=== PATIENT | female | born 1965 | race Hispanic/Latino ===

== ENCOUNTER 2019-07-07 09:28 | Inpatient (IN) | payer BC ==
[~2019-07-07] VITALS: Ht 152.4 cm; Wt 68.0 kg
[2019-07-07 09:54] LABS: BASOPHILS % (AUTO) 0.4 % (0.0-5.0); EOSINOPHILS % (AUTO) 0.8 % (0.0-8.0); HEMATOCRIT 45.1 % (36-48); LYMPHOCYTES % (AUTO) 13.6 % (21.0-51.0); MEAN CORPUSCULAR HEMOGLOBIN 30.4 pg (27.0-33.0); MEAN CORPUSCULAR HGB CONC 33.9 g/dL (32.0-36.0); MEAN CORPUSCULAR VOLUME 89.7 fL (79-99); MONOCYTES % (AUTO) 11.4 % (3.0-13.0); NEUTROPHILS % (AUTO) 73.3 % (40.0-77.0); PLATELET COUNT (AUTO) 240 K/uL (130-400); RED BLOOD CELL COUNT(AUTO) 5.03 MIL/uL (4.00-5.50); RED CELL DISTRIBUTION WIDTH 12.6 % (11.0-15.5); WHITE BLOOD COUNT (AUTO) 11.2 K/uL (4.8-10.8)
[2019-07-07] MEDS ORDERED: CEFTRIAXONE SODIUM 2 GM VIAL ONE (10:06)
[2019-07-07] MEDS ORDERED: SODIUM CHLORIDE 0.9% 100 ML IV ONE (10:07)
[2019-07-07 10:12] LABS: CREATININE 1.1 mg/dL (0.5-1.5); POTASSIUM 3.5 mmol/L (3.5-5.1)
[2019-07-07 10:15] LABS: INR 0.87 (0.85-1.15); PARTIAL THROMBOPLASTIN TIME 30.6 SEC (26.3-35.5); PROTHROMBIN TIME 9.4 SEC (9.6-11.6)
[2019-07-07 10:17] LABS: ALBUMIN 3.4 g/dL (3.5-5.0); BILIRUBIN,TOTAL 0.6 mg/dL (0.2-1.0); TOTAL PROTEIN, SERUM 8.5 g/dL (6.0-8.3)
[2019-07-07] MEDS ORDERED: SODIUM CHLORIDE 0.9% 1000ML 1,000 ML IV ONE (11:31)
[2019-07-07] MEDS ORDERED: MORPHINE SULFATE 4 MG/1ML SYG ONE (11:32)
[2019-07-07] MEDS ORDERED: GLUCAGON 1MG KIT 1 MG ML IM PRN (12:15)
[2019-07-07] MEDS ORDERED: DEXTROSE 50%-WATER 50 ML DISP.SYRIN IV PRN (12:15)
[2019-07-07] MEDS ORDERED: LIDOCAINE HCL-MPF 1% 2ML VIAL IV PRN (12:15)
[2019-07-07] MEDS ORDERED: ONDANSETRON HCL 4 MG/2 ML VIAL IVP PRN ×2 (12:15→16:30)
[2019-07-07] MEDS ORDERED: POTASSIUM CHLORIDE 10% ELIXIR 20 MEQ/15 ML UDCUP PO PRN (12:15)
[2019-07-07] MEDS ORDERED: HYDRALAZINE HCL 20 MG/ML VIAL IV PRN ×2 (12:15→16:30)
[2019-07-07] MEDS ORDERED: LABETALOL 20 MG/4 ML DISP.SYRIN IV PRN (12:15)
[2019-07-07] MEDS ORDERED: VANCOMYCIN PROTOCOL PER PHARMACY IV SCH (12:15)
[2019-07-07] MEDS ORDERED: POTASSIUM CHLORIDE 20MEQ/100ML 100 ML IV PRN (12:15)
[2019-07-07] MEDS ORDERED: MAGNESIUM 2GM PREMIX 50ML 50 ML IV PRN ×2 (12:15→16:30)
[2019-07-07] MEDS ORDERED: HYDROMORPHONE HCL 0.5 MG/0.5 ML ML IVP PRN (12:15)
[2019-07-07] MEDS ORDERED: VANCOMYCIN 1GM+NS 250ML 250 ML IV ONE (13:27)
[2019-07-07 13:50] VITALS: BP 138/94
--- NOTE | 2019-07-07 14:00 | NUR ---
REPORT RECEIVED FROM TIFFANIE MARKS (ED). PATIENT ADMITTED FOR LEFT LEG CELLULITIS UNDER DR. LEUNG. LEFT LEG SWELLING WITH REDNESS AND PURPLE DISCOLORATION NOTED. SKIN INTACT. PATIENT STABLE AT THIS TIME.
[2019-07-07 14:15] LABS: HEMATOCRIT 40.3 % (36-48); MEAN CORPUSCULAR HEMOGLOBIN 30.5 pg (27.0-33.0); MEAN CORPUSCULAR HGB CONC 33.5 g/dL (32.0-36.0); MEAN CORPUSCULAR VOLUME 91.2 fL (79-99); RED BLOOD CELL COUNT(AUTO) 4.42 MIL/uL (4.00-5.50); RED CELL DISTRIBUTION WIDTH 12.7 % (11.0-15.5)
[2019-07-07] MEDS ORDERED: PHARMACY COMMUNICATION MISC SCH (14:30)
[2019-07-07 14:31] LABS: CREATININE 0.7 mg/dL (0.5-1.5); POTASSIUM 3.7 mmol/L (3.5-5.1)
[2019-07-07 14:34] LABS: MAGNESIUM 1.9 mg/dL (1.80-2.40); PHOSPHORUS 3.8 mg/dL (2.5-4.9)
[2019-07-07 15:30] VITALS: BP 140/80
[2019-07-07] MEDS: INSULIN HUMULIN R 100 UNIT/ML 3ML SQ SCH ×2 (16:30→21:00)
[2019-07-07] MEDS ORDERED: ACETAMINOPHEN 325 MG TAB PO PRN (16:30)
[2019-07-07] MEDS ORDERED: IBUPROFEN 800 MG TAB PO PRN (16:30)
[2019-07-07] MEDS ORDERED: LACTULOSE 20 GM/30 ML UDCUP PO PRN (16:30)
[2019-07-07 20:00] VITALS: BP 125/81
[2019-07-07] MEDS: ACETAMINOPHEN 325 MG TAB PO PRN (20:23)
[2019-07-07] MEDS: HEPARIN SODIUM 5000UNIT/ML 1ML VIAL SQ SCH (20:30)
[2019-07-07] MEDS ORDERED: VANCOMYCIN 1GM+NS 250ML 250 ML IV SCH (21:00)
[2019-07-08] VITALS: BP 115/71
[2019-07-08] MEDS: VANCOMYCIN 1GM+NS 250ML 250 ML IV SCH ×3 (02:45→21:47)
[2019-07-08] MEDS: SODIUM CHLORIDE 0.9% 1000ML 1,000 ML IV SCH ×3 (02:45→22:30)
[2019-07-08 04:00] VITALS: BP 106/78
[2019-07-08] MEDS: ACETAMINOPHEN 325 MG TAB PO PRN (04:06)
[2019-07-08 05:57] LABS: HEMATOCRIT 36.3 % (36-48); MEAN CORPUSCULAR HGB CONC 34.2 g/dL (32.0-36.0); MEAN CORPUSCULAR VOLUME 90.8 fL (79-99); RED CELL DISTRIBUTION WIDTH 12.5 % (11.0-15.5); WHITE BLOOD COUNT (AUTO) 9.9 K/uL (4.8-10.8)
[2019-07-08 06:11] LABS: CREATININE 0.8 mg/dL (0.5-1.5); MAGNESIUM 1.9 mg/dL (1.80-2.40); PHOSPHORUS 3.4 mg/dL (2.5-4.9)
[2019-07-08] MEDS: INSULIN HUMULIN R 100 UNIT/ML 3ML SQ SCH ×4 (06:39→21:00)
[2019-07-08 07:31] VITALS: BP 120/77
[2019-07-08] MEDS: LEVOFLOXACIN 750 MG/D5W 150 ML 150 ML IV SCH (08:48)
[2019-07-08] MEDS: POTASSIUM CHLORIDE 20 MEQ ERTAB PO PRN ×3 (08:49→17:14)
[2019-07-08] MEDS: PANTOPRAZOLE SODIUM 40 MG TABLET.DR PO SCH (08:50)
[2019-07-08] MEDS: HEPARIN SODIUM 5000UNIT/ML 1ML VIAL SQ SCH ×2 (08:52→21:46)
[2019-07-08 11:04] VITALS: BP 125/74
[2019-07-08 15:38] VITALS: BP 141/91
[2019-07-08 20:27] VITALS: BP 126/81
[2019-07-09] VITALS (8 sets, daily range): BP systolic 105–150; BP diastolic 63–93
--- NOTE | 2019-07-09 06:10 | NUR ---
CALLED PHARMACY [facility] AWARE OF PT'S VANCO THROUGH AND FAXED /SEND LAB REPORT STATED WILL TELL PHARMACIST
[2019-07-09] MEDS: INSULIN HUMULIN R 100 UNIT/ML 3ML SQ SCH ×4 (06:12→21:00)
[2019-07-09] MEDS: LEVOFLOXACIN 750 MG/D5W 150 ML 150 ML IV SCH (07:48)
[2019-07-09] MEDS: PANTOPRAZOLE SODIUM 40 MG TABLET.DR PO SCH (07:48)
[2019-07-09] MEDS: HEPARIN SODIUM 5000UNIT/ML 1ML VIAL SQ SCH ×2 (07:54→21:53)
[2019-07-09] MEDS: SODIUM CHLORIDE 0.9% 1000ML 1,000 ML IV SCH (08:30)
[2019-07-09] MEDS: VANCOMYCIN 1GM+NS 250ML 250 ML IV SCH ×2 (09:00→21:52)
[2019-07-09] MEDS ORDERED: VANCOMYCIN 2 GM in SODIUM CHLORIDE 0.9% 500ML 500 ML IV SCH (09:30)
[2019-07-09] MEDS ORDERED: POTASSIUM CHLORIDE 20MEQ/100ML 100 ML IV PRN (15:45)
[2019-07-09] MEDS ORDERED: LIDOCAINE HCL-MPF 1% 2ML VIAL IJ PRN (15:45)
[2019-07-09] MEDS ORDERED: POTASSIUM CHLORIDE 10% ELIXIR 20 MEQ/15 ML UDCUP PO PRN (15:45)
[2019-07-09] MEDS ORDERED: POTASSIUM CHLORIDE 20 MEQ ERTAB PO PRN (15:45)
[2019-07-09] MEDS ORDERED: MAGNESIUM 2GM PREMIX 50ML 50 ML IV PRN (15:45)
[2019-07-09] MEDS ORDERED: FLUCONAZOLE 200 MG/NS 100 ML 100 ML IV SCH (16:00)
[2019-07-09] MEDS: TERBINAFINE HCL 15 GM TUBE TP SCH (22:03)
[2019-07-10 03:00] VITALS: BP 122/87
[2019-07-10 03:56] LABS: BASOPHILS % (AUTO) 0.6 % (0.0-5.0); EOSINOPHILS % (AUTO) 3.2 % (0.0-8.0); HEMATOCRIT 38.8 % (36-48); LYMPHOCYTES % (AUTO) 25.7 % (21.0-51.0); MEAN CORPUSCULAR HEMOGLOBIN 30.4 pg (27.0-33.0); MEAN CORPUSCULAR HGB CONC 33.5 g/dL (32.0-36.0); MEAN CORPUSCULAR VOLUME 90.7 fL (79-99); MONOCYTES % (AUTO) 10.5 % (3.0-13.0); NEUTROPHILS % (AUTO) 56.5 % (40.0-77.0); PLATELET COUNT (AUTO) 316 K/uL (130-400); RED BLOOD CELL COUNT(AUTO) 4.28 MIL/uL (4.00-5.50); RED CELL DISTRIBUTION WIDTH 12.3 % (11.0-15.5); WHITE BLOOD COUNT (AUTO) 10.4 K/uL (4.8-10.8)
[2019-07-10 04:20] LABS: ALBUMIN 2.8 g/dL (3.5-5.0); BILIRUBIN,TOTAL 0.4 mg/dL (0.2-1.0); CREATININE 0.8 mg/dL (0.5-1.5); CRP QUANTITATIVE 81.9 mg/L (0.00-9.0); POTASSIUM 3.6 mmol/L (3.5-5.1); TOTAL PROTEIN, SERUM 7.4 g/dL (6.0-8.3)
[2019-07-10 04:59] LABS: ERYTHROCYTE SEDIMENTATION RATE 65 MM/HR (0-30)
[2019-07-10] MEDS: VANCOMYCIN 1GM+NS 250ML 250 ML IV SCH (05:27)
[2019-07-10] MEDS: INSULIN HUMULIN R 100 UNIT/ML 3ML SQ SCH ×4 (05:27→21:00)
[2019-07-10 07:58] VITALS: BP 131/86
[2019-07-10] MEDS: LEVOFLOXACIN 750 MG/D5W 150 ML 150 ML IV SCH (10:17)
[2019-07-10] MEDS: PANTOPRAZOLE SODIUM 40 MG TABLET.DR PO SCH (10:30)
[2019-07-10] MEDS: TERBINAFINE HCL 15 GM TUBE TP SCH ×2 (11:02→21:32)
[2019-07-10] MEDS: HEPARIN SODIUM 5000UNIT/ML 1ML VIAL SQ SCH ×2 (11:02→21:39)
--- NOTE | 2019-07-10 11:44 | NUR ---
DCP CM met with pt discussed dc plans. Pt is independent prior to admission, lives at home with spouse. Denies any equipments/services. Feels safe to go back home, still works and drives, spouse able to assist with transportation and needs as necessary. DC plan to home once stable. CM to cont to follow up. Addendum: 07/10/19 at 1145 by ANUJ HENRY LVN CM Amended: Links added.
[2019-07-10 12:07] VITALS: BP 137/93
[2019-07-10 16:00] VITALS: BP 128/87
[2019-07-10] MEDS: CLINDAMYCIN 900 MG/D5% WATER 50 ML IV SCH ×2 (16:04→23:59)
[2019-07-10] MEDS: ACETAMINOPHEN 325 MG TAB PO PRN (16:11)
[2019-07-10 20:13] VITALS: BP 122/83
[2019-07-11 00:34] VITALS: BP 111/71
[2019-07-11 03:39] LABS: BASOPHILS % (AUTO) 0.8 % (0.0-5.0); EOSINOPHILS % (AUTO) 4.4 % (0.0-8.0); HEMATOCRIT 39.5 % (36-48); LYMPHOCYTES % (AUTO) 24.4 % (21.0-51.0); MEAN CORPUSCULAR HEMOGLOBIN 30.6 pg (27.0-33.0); MEAN CORPUSCULAR HGB CONC 33.7 g/dL (32.0-36.0); MEAN CORPUSCULAR VOLUME 90.8 fL (79-99); MONOCYTES % (AUTO) 9.2 % (3.0-13.0); NEUTROPHILS % (AUTO) 54.8 % (40.0-77.0); PLATELET COUNT (AUTO) 346 K/uL (130-400); RED BLOOD CELL COUNT(AUTO) 4.35 MIL/uL (4.00-5.50); RED CELL DISTRIBUTION WIDTH 12.2 % (11.0-15.5); WHITE BLOOD COUNT (AUTO) 8.8 K/uL (4.8-10.8)
[2019-07-11 04:09] LABS: ALBUMIN 2.8 g/dL (3.5-5.0); BILIRUBIN,TOTAL 0.3 mg/dL (0.2-1.0); CREATININE 0.9 mg/dL (0.5-1.5); CRP QUANTITATIVE 50.3 mg/L (0.00-9.0); MAGNESIUM 2.1 mg/dL (1.80-2.40); PHOSPHORUS 5.3 mg/dL (2.5-4.9); POTASSIUM 4.1 mmol/L (3.5-5.1); TOTAL PROTEIN, SERUM 7.2 g/dL (6.0-8.3)
[2019-07-11 04:44] LABS: ERYTHROCYTE SEDIMENTATION RATE 85 MM/HR (0-30)
[2019-07-11 04:46] VITALS: BP 128/87
[2019-07-11] MEDS: CLINDAMYCIN 900 MG/D5% WATER 50 ML IV SCH ×3 (06:02→21:14)
[2019-07-11] MEDS: INSULIN HUMULIN R 100 UNIT/ML 3ML SQ SCH ×4 (06:48→21:00)
--- NOTE | 2019-07-11 07:48 | NUR ---
PATIENT UPDATE Left leg less swollen, elevated over 1 pillow overnight. No complaints of pain, vital signs stable. Taken down in the MRI dept this am for the MRI of the left lower extremity this am.
[2019-07-11 08:00] VITALS: BP 147/83
[2019-07-11] MEDS: LEVOFLOXACIN 750 MG/D5W 150 ML 150 ML IV SCH (08:30)
[2019-07-11] MEDS: FLUCONAZOLE 100 MG TAB PO SCH (08:33)
[2019-07-11] MEDS: PANTOPRAZOLE SODIUM 40 MG TABLET.DR PO SCH (08:36)
[2019-07-11] MEDS: TERBINAFINE HCL 15 GM TUBE TP SCH ×2 (08:39→21:18)
[2019-07-11] MEDS: HEPARIN SODIUM 5000UNIT/ML 1ML VIAL SQ SCH ×2 (08:46→21:31)
[2019-07-11 11:54] VITALS: BP 139/81
--- NOTE | 2019-07-11 18:05 | NUR ---
CALLED DR JI FOR CONSULT. NO ANSWER. WILL CALL CALL AGAIN.
[2019-07-11 18:25] VITALS: BP 125/86
[2019-07-11 20:04] VITALS: BP 144/83
--- NOTE | 2019-07-11 22:40 | NUR ---
NOTE NO CALL BACK FROM DR. JI TO INFORM OF CONSULT. SPOKE WITH [facility]. ADVISED TO TRY AGAIN IN AM.
[2019-07-12 00:08] VITALS: BP 115/78
[2019-07-12 04:08] VITALS: BP 118/74
[2019-07-12 05:25] LABS: BASOPHILS % (AUTO) 1.3 % (0.0-5.0); EOSINOPHILS % (AUTO) 3.6 % (0.0-8.0); HEMATOCRIT 39.4 % (36-48); LYMPHOCYTES % (AUTO) 22.6 % (21.0-51.0); MEAN CORPUSCULAR HEMOGLOBIN 30.5 pg (27.0-33.0); MEAN CORPUSCULAR HGB CONC 33.8 g/dL (32.0-36.0); MEAN CORPUSCULAR VOLUME 90.4 fL (79-99); MONOCYTES % (AUTO) 9.9 % (3.0-13.0); NEUTROPHILS % (AUTO) 54.6 % (40.0-77.0); PLATELET COUNT (AUTO) 381 K/uL (130-400); RED BLOOD CELL COUNT(AUTO) 4.36 MIL/uL (4.00-5.50); RED CELL DISTRIBUTION WIDTH 12.2 % (11.0-15.5); WHITE BLOOD COUNT (AUTO) 9.7 K/uL (4.8-10.8)
[2019-07-12 05:33] LABS: POTASSIUM 4.2 mmol/L (3.5-5.1)
[2019-07-12] MEDS: CLINDAMYCIN 900 MG/D5% WATER 50 ML IV SCH ×2 (06:10→14:08)
[2019-07-12] MEDS: INSULIN HUMULIN R 100 UNIT/ML 3ML SQ SCH ×2 (06:14→11:30)
--- NOTE | 2019-07-12 06:41 | NUR ---
NOTE CONTACTED ANSWERING SERVICE TO PAGE DR. JI TO INFORM OF CONSULT.
[2019-07-12 08:00] VITALS: BP 124/81
[2019-07-12] MEDS: LEVOFLOXACIN 750 MG/D5W 150 ML 150 ML IV SCH (08:47)
[2019-07-12] MEDS: FLUCONAZOLE 100 MG TAB PO SCH (08:47)
[2019-07-12] MEDS: TERBINAFINE HCL 15 GM TUBE TP SCH (08:48)
[2019-07-12] MEDS: PANTOPRAZOLE SODIUM 40 MG TABLET.DR PO SCH (08:48)
[2019-07-12] MEDS: HEPARIN SODIUM 5000UNIT/ML 1ML VIAL SQ SCH (09:00)
[2019-07-12 11:45] VITALS: BP 131/94
== END 2019-07-12 16:40 | disposition home or self-care (01) | DRG 603 ==
LOC: EDH 09:28 → EDHIP 12:01 → OBSVTOIN 12:01 → 3BH 14:10
PROVIDERS: ADMIT Internal Medicine Critical Care Medicine; ATTEND Internal Medicine Critical Care Medicine
DX: L03.116 Cellulitis of left lower limb (principal); R73.9 Hyperglycemia, unspecified; B35.3 Tinea pedis; M72.9 Fibroblastic disorder, unspecified; Z87.891 Personal history of nicotine dependence
CPT/HCPCS: 36415; 73218; 73718; 80048; 80053; 80061; 80202; 82948; 83036; 83605; 83735; 84100; 84132; 84484; 85025; 85027; 85610; 85651; 85730; 86140; 87040; 93005; 93926; 93971; G0378; J0696; J1450; J1644; J1956; J2270; J3370; J3480; J3490; J7030; J7040